=== PATIENT | male | born 1990 | race Caucasian/White ===

== ENCOUNTER 2020-04-05 11:59 | Emergency (ER) | payer SELFPAY ==
[~2020-04-05] VITALS: Ht 180.3 cm; Wt 90.7 kg
[~2020-04-05 11:59] MED LIST: AMPDEX10CR; METPRE4DP PO; Mobic7.5 MG PO; PENVK500 PO
== END 2020-04-05 13:01 | disposition home or self-care (01) ==
LOC: ER 11:59
DX: S01.01XA Laceration without foreign body of scalp, initial encounter (principal); W19.XXXA Unspecified fall, initial encounter
CPT/HCPCS: 12032; 12034; 99283-25

== ENCOUNTER 2022-11-14 11:40 | Emergency (ER) | payer OTHER ==
[~2022-11-14] VITALS: Ht 180.3 cm; Wt 107.0 kg
== END 2022-11-14 13:22 | disposition home or self-care (01) ==
LOC: ER 11:40
DX: S61.102A Unspecified open wound of left thumb with damage to nail, initial encounter (principal); W26.0XXA Contact with knife, initial encounter
CPT/HCPCS: 90714